=== PATIENT | female | born 1995 | race African-American/Black ===

== ENCOUNTER 2021-03-25 12:42 | Inpatient (IN) | payer MEDICAID ==
[~2021-03-25] VITALS: Ht 154.9 cm; Wt 48.3 kg
[2021-03-25 14:40] LABS: HEMATOCRIT 38.2 % (36.0-47.0); HEMOGLOBIN 12.6 g/dl (12.0-15.5); MEAN CORPUSCULAR HEMOGLOBIN 26.9 pg (27.0-33.0); MEAN CORPUSCULAR VOLUME 81.4 fl (80.0-96.0); PLATELET COUNT, AUTOMATED 253 10^3/uL (150-450); RED BLOOD COUNT 4.69 10^6/uL (4.00-5.40); WHITE BLOOD COUNT 7.2 10^3/uL (4.0-10.0)
[2021-03-25 14:47] LABS: AMPHETAMINES LEVEL URINE NEGATIVE (NEGATIVE); BARBITURATES URINE NEGATIVE (NEGATIVE); BENZODIAZEPINES URINE NEGATIVE (NEGATIVE); CANNABINOIDS URINE POSITIVE (NEGATIVE); COCAINE METABOLITE URINE NEGATIVE (NEGATIVE); METHADONE URINE NEGATIVE (NEGATIVE); OPIATES URINE NEGATIVE (NEGATIVE); PHENCYCLIDINE URINE NEGATIVE (NEGATIVE)
[2021-03-25 15:00] LABS: HCG, SERUM QUALITATIVE NEGATIVE (NEGATIVE)
[2021-03-25 15:11] LABS: RSV AMPLIFICATION NEGATIVE (NEGATIVE)
[2021-03-25 15:13] LABS: ACETAMINOPHEN LEVEL < 2.0 UG/ML (10.0-30.0); ALBUMIN 3.7 GM/DL (3.2-5.2); ALT/SGPT 13 U/L (12-78); BILIRUBIN,DIRECT 0.2 MG/DL (0.0-0.2); BILIRUBIN,TOTAL 0.5 MG/DL (0.2-1.0); BLOOD UREA NITROGEN 5 MG/DL (7-18); CALCIUM LEVEL 8.9 MG/DL (8.5-10.1); CARBON DIOXIDE LEVEL 29 MEQ/L (21-32); CHLORIDE LEVEL 107 MEQ/L (98-107); CREATININE FOR GFR 0.74 MG/DL (0.55-1.30); ETHYL ALCOHOL (ETHANOL) 0.005 % (0.000-0.010); GLOMERULAR FILTRATION RATE > 60.0 (>60); GLUCOSE, FASTING 90 MG/DL (70-100); SALICYLATE LEVEL 2.1 MG/DL (5.0-30.0); SODIUM LEVEL 140 MEQ/L (136-145); THYROID STIMULATING HORMONE 0.683 uIU/ML (0.358-3.740); TOTAL PROTEIN 7.1 GM/DL (6.4-8.2)
[2021-03-25] MEDS ORDERED: HOME MED LIST COMPLETE! XX SCH (15:55)
[2021-03-25] MEDS ORDERED: MOM 30ML SUSPENSION UDC PO PRN (16:10)
[2021-03-25] MEDS ORDERED: MAALOX 30 ML SUSP *UDC PO PRN (16:10)
[2021-03-25] MEDS ORDERED: ACETAMINOPHEN TAB 650MG DOSE (2X325MG) PO PRN (16:10)
[2021-03-25 20:55] VITALS: BP 141/91
[2021-03-25] MEDS: traZODone 50 MG TAB PO PRN (21:24)
[2021-03-26 06:28] VITALS: BP 128/75
--- NOTE | 2021-03-26 16:13 | HPEPDOC ---
[facility] Medical History & Physical Date of Admission Mar 26, 2021 Date of Service: Mar 26, 2021 History and Physical Chief complaint: Who presented to the ER with suicidal thoughts History of present illness: Patient is a 25-year-old female with a past medical history of sickle cell trait who presented to the ER with suicidal thoughts. Patient was admitted to the inpatient mental health unit under the care of psychiatry. Hospitalist service was consulted for medical screening evaluation. Patient was seen and examined in the exam room with a female mailing specialist. Currently patient denies any headache, nausea, vomiting, chest pain, shortness breath, cough or palpitations. She denies any abdominal pain, constipation, diarrhea, or urinary discomfort. She denies any recent fevers or chills. Patient was that her appetite has been improving. Denies any changes in her weight. Past Medical History: Sickle cell trait Past Surgical History: Denies any prior surgical history Allergies: See below Medications: See below Family History: - Mother: - Father: - No history of malignancies Social History: - Denies the use of alcohol, tobacco; patient does report the use of marijuana - Denies recent travel or sick contacts - Lives with friend - Occupation; currently unemployed Review of Systems: 10 point review of systems complete, all negative otherwise stated in HPI Physical exam: - Vitals: BP [128/75], HR [58], RR [18], Sat [98%RA], Temp [99.8F] - General: Sitting up in chair, Speaking in full sentences, AAOx3 - HEENT: NC, AT, PERRLA - CVS: RRR, +S1S2, - Murmurs / rubs / gallops - Lungs: Fair air entry bilaterally, No appreciable wheezing / rales / rhonchi - Abdomen: Soft, Non-distended, Non-tender - Extremities: No lower extremity edema, No calf tenderness - Neuro: No focal motor or sensory deficit - Skin: No visible rashes Labs: See below Imaging: See below EKG: See below Assessment and Plan: Suicidal thoughts - Patient has been admitted to the inpatient mental health unit under the care of psychiatry - Currently being managed by psychiatry Sickle cell trait - Hemoglobin appears - A she denies any prior history of problems DVT prophylaxis - Will continue with early ambulation Female mailing specialist was present throughout the duration of this history and physical examination Thank you for this consultation. Hospitalist service will now sign off; please reconsult as needed Vital Signs Vital Signs Date Time Temp Pulse Resp B/P (MAP) Pulse Ox O2 Delivery O2 Flow Rate FiO2 03/26/21 06:28 99.8 58 18 128/75 (92) 98 Room Air Home Medications No Active Prescriptions or Reported Meds Allergies Coded Allergies: No Known Allergies (Unverified , 03/25/21) BAMBI WEBER MD Mar 26, 2021 16:13
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
[2021-03-26 18:54] VITALS: BP 133/76
[2021-03-26] MEDS: traZODone 50 MG TAB PO PRN (21:22)
[2021-03-27 06:37] VITALS: BP 125/76
--- NOTE | 2021-03-27 14:42 | MHIPN ---
[facility] PROGRESS NOTE DATE: 03/27/2021 VITAL SIGNS: Temperature 98.6, pulse 76, respirations 20, blood pressure 125/76. CURRENT MEDICATIONS: Trazodone 50 mg at bedtime as needed HISTORY OF PRESENT ILLNESS: This is a 25-year-old female admitted with depression and suicidal ideation on a 9.39 status. Patient has been resistant to taking antidepressants, as she is still nursing. Patient's daughter is safe with the patient's girlfriend. Patient still feels sad. She misses her daughter, who is age just 7 months. Patient states that her appetite has improved. She ate well this morning. She did sleep well last night. She did take some as-needed trazodone. Patient does admit to having weepy episodes this morning. We discussed a trial of antidepressant, but she is resistant. MENTAL STATUS EXAMINATION: Patient is alert, oriented, and fairly competent. Affect is subdued today. Mood is depressed. She reports weepy episodes. She denies current suicidal ideation or wish ot harm self or others. Insight and judgment appear limited. No signs of psychotic symptoms. Reality testing appears intact. Cognitive functions appear within normal limits. ASSESSMENT: Patient continues to be depressed with weepy episodes. Patient initially presented with possible situational depression. Now her depressive symptoms appear to be more biological in nature. She is, however, resistant to a trial of psychotropics. DIAGNOSES: 1. Major depression, recurrent. 2. Cannabis use disorder. PLAN: Involve patient in milieu therapy. Possible trial on psychotropics as indicated. Involve in hospital milieu. Staff to work on discharge planning.
[2021-03-27 15:19] VITALS: BP 126/76
[2021-03-27] MEDS: diphenhydrAMINE 50MG CAP PO SCH (21:37)
[2021-03-27] MEDS: traZODone 50 MG TAB PO PRN (23:41)
[2021-03-28 06:43] VITALS: BP 117/53
--- NOTE | 2021-03-28 13:54 | MHIPN ---
[facility] PROGRESS NOTE DATE: 03/28/2021 VITAL SIGNS: Temperature 99.3, pulse 70, respirations 16, blood pressure 117/53. CURRENT MEDICATIONS: - Benadryl 50 mg at bedtime - trazodone 50 mg at bedtime as needed HISTORY OF PRESENT ILLNESS: Patient reports her mood improved compared to yesterday. She feels calmer. She has found the support here on the unit helpful from the nurses and therapists. She feels more optimistic. Her appetite is good. She slept better last night with the Benadryl. She still misses her young daughter. Her girlfriend in the community is taking care of the child and is a major support. Patient does plan on nursing upon discharge and is still not interested in psychotropics at this time. MENTAL STATUS EXAMINATION: Patient is alert, oriented, and cooperative. Grooming and hygiene are good. Eye contact is good. Affect improved compared to yesterday. She is more verbal and appears more insightful. Judgment appears to be good. Not voicing any suicidal ideation. Depressive symptoms are minimal. She is not homicidal. Reality testing intact. No signs of psychosis. Cognitive functions intact. No signs of impulsivity or dangerousness. ASSESSMENT: Patient appears to be responding to milieu therapy. DIAGNOSES: 1. Major depression, recurrent, improved. 2. Cannabis use disorder. PLAN: Continue present management.
[2021-03-28 18:06] VITALS: BP 122/83
[2021-03-28] MEDS: traZODone 50 MG TAB PO PRN (21:23)
[2021-03-28] MEDS: diphenhydrAMINE 50MG CAP PO SCH (21:23)
[2021-03-29 07:09] VITALS: BP 127/61
[2021-03-29] MEDS: diphenhydrAMINE 50MG CAP PO SCH (20:53)
[2021-03-29] MEDS: traZODone 50 MG TAB PO PRN (20:53)
[2021-03-30 06:42] VITALS: BP 107/58
--- NOTE | 2021-03-30 20:55 | MHIPN ---
[facility] PROGRESS NOTE DATE: 03/30/2021 VITAL SIGNS: Temperature 98.5, pulse 65, respirations 14, blood pressure 127/61. CURRENT MEDICATIONS: 1. Benadryl 50 mg by mouth at bedtime. 2. Trazodone 50 mg at bedtime p.r.n. HISTORY OF PRESENT ILLNESS: This is a 25-year-old -Malaysian female with a history of depression. Patient states that her mood is improving; she is having a good weekend. She admits that she worries about things too much. Her concentration seems to be improving. Her appetite has been good on the unit. She is sleeping better at night with her psychotropics. She feels more positive about the future and is willing to get outpatient mental health services upon discharge. MENTAL STATUS EXAM: Patient is alert, oriented and cooperative. Affect is good today; affect is definitely brighter. Eye contact remains fine. Patient is quite verbal. Insight and judgment seem improving. Depressive symptoms are minimal. No suicidal ideation. Patient not psychotic. Cognitive function is intact. ASSESSMENT: Patient doing well in the milieu. DIAGNOSES: 1. Major depression recurrent, improved. 2. Cannabis use disorder. PLAN: Continue present management. Staff will work on discharge planning.
--- NOTE | 2021-03-30 21:27 | MHDS ---
[facility] DISCHARGE SUMMARY DATE OF ADMISSION: 03/25/2021 DATE OF DISCHARGE: 03/30/2021 VITAL SIGNS: Temperature 98.3, pulse 71, respirations 16, blood pressure 107/58. LABORATORY DATA: CBC and differential within normal limits except for low MCH at 26.9. Serum chemistry within normal limits except for low anion gap at 4 and BUN at 5. test was negative. Urine toxicology was negative except for cannabinoids. DISCHARGE DIAGNOSES: 1. Major depression, recurrent, mild. 2. Cannabis use disorder. DISCHARGE MEDICATIONS: None. HISTORY OF PRESENT ILLNESS: This is a 25-year-old -[place]ian female with a daughter, age 7 months. Patient has been depressed off and on for the past year. She has multiple situational stressors. She has trouble with insomnia. Her appetite is poor. She has lost 15 pounds. She feels helpless and hopeless. She has been searching on the internet for ways to kill herself. She has contemplated using a gun or taking an overdose. She fells overwhelmed by the stress of taking care of her daughter. The father of the child has been unresponsive. Her family in [place] has also been not responsive. Patient moved here to the [facility] about two weeks ago to stay with a girlfriend. Patient has a history of depression dating back to age 12 or 14. Her depression has waxed and waned secondary to situational stressors. She has never been on antidepressants before. PROGRESS ON THE UNIT: Patient is still nursing, so she declined to take any antidepressants. She was initially resistant to being hospitalized, but very quickly, her attitude improved. She found the support helpful on the unit. She attended the group therapy program. Her appetite improved. She slept well at night with as needed Benadryl. Suicidal ideation resolved quickly. Patient appeared to show full range of affect prior to discharge. Patient was optimistic about the future. She has goals in life. Her girlfriend is very supportive. Patient is going to follow up with outpatient mental health services and to engage with the local [employer] [facility] office, MENTAL STATUS EXAMINATION: At the time of discharge, mood and affect are much improved. Affect appeared bright. She was optimistic and hopeful. She is not suicidal or homicidal. Grooming and hygiene were good. No signs of organicity. No signs of impulsivity or dangerousness. ASSESSMENT: Patient appears to have reached maximal hospital benefit and should do well in the community with outpatient mental health followup. PLAN: Patient discharged to the community.
== END 2021-03-30 13:58 | disposition home or self-care (01) | DRG 751 ==
LOC: M ED 12:42 → M ED INP 16:09 → M PSY 20:23
PROVIDERS: ADMIT Psychiatry & Neurology Psychiatry; ATTEND Psychiatry & Neurology Psychiatry
DX: F33.0 Major depressive disorder, recurrent, mild (principal); F12.10 Cannabis abuse, uncomplicated; R45.851 Suicidal ideations; Z62.810 Personal history of physical and sexual abuse in childhood; Z91.52 Personal history of nonsuicidal self-harm

== ENCOUNTER → 2021-04-20 | Outpatient (REF) | LOC: M LABSMTC 13:38 | PROVIDERS: ATTEND Pediatrics | DX: Z20.822 Contact with and (suspected) exposure to COVID-19 (principal) ==